=== PATIENT | female | born 1980 | race Caucasian/White ===

== ENCOUNTER 2016-10-06 13:48 | Outpatient (CLI) | payer OTHER ==
--- NOTE | 2016-10-06 16:56 | DIAGNOSTIC IMAGING REPORT ---
PROCEDURE: MG BILATERAL DIAGNOSTIC W/CAD INDICATION: LEFT BREAST FIRM LUMP, 1.5 CM AT 11 OCLOCK. Paternal grandmother and three aunts with a history of breast cancer TECHNIQUE: CC and MLO digital views of each breast with true-lateral digital view of the left breast. In addition, spot compression CC and MLO views were obtained of the anterior left upper breast (region of clinical concern). Finally, high-resolution left breast ultrasound was performed (18 mHz). COMPARISON: Baseline FINDINGS: MAMMOGRAM: Computer-aided detection applied. Dense breast parenchymal pattern. No suspicious mass, architectural distortion or pleomorphic microcalcifications. No focal abnormalities in the symptomatic area . BREAST ULTRASOUND: Ultrasound targeted to the 12 o'clock position of the left breast in the symptomatic area demonstrated normal breast parenchyma. No evidence of a focal mass, fluid collection or abnormal acoustic shadowing IMPRESSION: 1. Negative mammogram and left breast ultrasound. This should not delay biopsy of a clinically suspicious lesion. 2. Results discussed with the patient RESULT CODE: 1- Negative. A. A negative report should not delay biopsy if a dominant or clinically suspicious mass is present. 10-15% of cancers are not identified by x-ray. B. A negative report may reinforce clinical impression. C. Adenosis and dense breasts may obscure an underlying neoplasm. D. False positive reports average 6-10%. E.. A yearly screening mammogram is recommended. A reminder letter will be scheduled.
== END 2016-10-06 23:00 ==
LOC: MAM SRH 13:48
DX: N63 Unspecified lump in breast (principal); Z80.3 Family history of malignant neoplasm of breast